=== PATIENT | female | born 1990 | race Caucasian/White ===

== ENCOUNTER → 2017-01-01 | Outpatient (CLI) | payer BC | END | disposition home or self-care (01) | LOC: YCFC.O 13:10 | PROVIDERS: ATTEND Nurse Practitioner Family | DX: R10.9 Unspecified abdominal pain (principal) ==

== ENCOUNTER 2020-06-22 12:50 | Emergency (ER) | payer BC ==
[2020-06-22] MEDS ORDERED: methylPREDNISolone SODIUM SUC 125 MG/2 ML VIAL IV ONE (12:54)
[2020-06-22] MEDS ORDERED: diphenhydrAMINE HCL 50 MG/ML VIAL IV ONE (12:55)
[2020-06-22] MEDS ORDERED: SODIUM CHLORIDE 0.9% 1000ML 1,000 ML ONE (13:00)
[2020-06-22] MEDS ORDERED: EPINEPHrine HCL AMP 1 MG/ML AMP ONE (13:02)
[2020-06-22] MEDS ORDERED: SODIUM CHLORIDE 0.9% 1000ML 1,000 ML IVS ONE (13:03)
[2020-06-22] MEDS ORDERED: EPINEPHrine HCL AMP 1 MG/ML AMP IM ONE ×2 (13:06→13:13)
[2020-06-22] MEDS ORDERED: ONDANSETRON INJ 4 MG/2 ML VIAL ONE (13:11)
[2020-06-22 13:22] VITALS: TEMP 98.8
--- NOTE | 2020-06-22 13:43 | ED.PDOC ---
History of Present Illness - General Chief Complaint: Allergic Reaction Stated Complaint: allergic reaction after lunch meal Time Seen by Provider: 06/22/20 12:54 Source: patient, RN notes reviewed, Vital Signs reviewed - History of Present Illness Initial Comments: patient ate shrimp at [employer] restaurant at 11 AM shortly after on way home got tongue throat swelling, couldn't swallow, broke out in hives. Never happened before. denies new medication, hx of almond allergy, but not anaphylaxis. no peanut exposure she is aware of. Allergies/Adverse Reactions: Allergies NO KNOWN ALLERGY Allergy (Verified 06/22/20 13:22) Home Medications: Ambulatory Orders Epinephrine [Epipen 2-Chago] 0.3 mg IJ ONCE PRN #2 each 06/22/20 Prednisone 20 mg PO BID #10 tab 06/22/20 Review of Systems - Review of Systems Constitutional: States: diaphoresis. Denies: chills, fever EENTM: States: throat swelling, mouth swelling. Denies: blurred vision Respiratory: States: cough, short of breath, stridor Cardiology: States: palpitations. Denies: chest pain Gastrointestinal/Abdominal: Denies: abdominal pain, diarrhea, nausea, vomiting Genitourinary: Denies: frequency, hematuria Musculoskeletal: Denies: back pain, joint swelling, muscle pain, neck pain Neurological: Denies: headache, numbness, paresthesia, tingling, tremors, weakness Endocrine: Denies: increased urine, unexplained weight gain, unexplained weight loss Hematologic/Lymphatic: Denies: blood clots, easy bleeding, easy bruising Past Medical History (General) - Patient Medical History Hx Seizures: No Hx Stroke: No Hx Dementia: No Hx Asthma: No Hx of COPD: No Hx Cardiac Disorders: No Hx Congestive Heart Failure: No Hx Pacemaker: No Hx Hypertension: No Hx Thyroid Disease: No Hx Diabetes: No Hx Gastroesophageal Reflux: No Hx Renal Disease: No Hx Cancer: No Hx of HIV: No Hx Hepatitis B: No Hx Hepatitis C: No Hx MRSA: No Surgical History: no surgical history - Activities of Daily Living Hospice Agency (if applicable):: None - Female History Patient : No Family Medical History - Family History Mother Family History: Unknown Physical Exam - Physical Exam General Appearance: Alert, Anxious Eye Exam: bilateral normal Ears, Nose, Throat: other - tongue swollen, stridor, hoarse voice. Neck: non-tender, full range of motion, supple Respiratory: chest non-tender, lungs clear, normal breath sounds, no respiratory distress, no accessory muscle use Cardiovascular/Chest: normal peripheral pulses, no edema, no gallop, no JVD, no murmur, tachycardia Peripheral Pulses: radial,right: 2+, radial,left: 2+ Gastrointestinal/Abdominal: normal bowel sounds, non tender, soft, no organomegaly, no pulsatile mass Rectal Exam: deferred Back Exam: normal inspection, no CVA tenderness, no vertebral tenderness Extremity: normal range of motion, non-tender, normal inspection, no pedal edema, no calf tenderness, normal capillary refill 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 500 ml NS IVF Swelling improved. Voice no longer hoarse. I recommend patient be admitted for observation as she could have another flair up when medication wears off. This could quickly be fatal if she is not at the hospital. She acknowledge understanding and refused admission. The data reviewed when caring for this patient included: nurse notes, prior records, etc. The history and assessments from nurses notes were reviewed and considered, and the patient's home medication list was also reviewed and considered. My assessment and the results of testing completed here in the ED were discussed with the patient/family. All questions were answered, and they express understanding of my assessment and the plan. Strict return precautions given. ZEE Ruiz DO #[id number] 06/22/20 15:03 06/22/20 15:05 Departure - Departure Clinical Impression: Anaphylaxis Qualifiers: Encounter type: initial encounter Qualified Code(s): T78.2XXA - Anaphylactic shock, unspecified, initial encounter Disposition: Left Against Medical Advice Departure Forms: ED Discharge - Pt. Copy, Patient Portal Self Enrollment Instructions: DI for Allergic Rhinitis, Anaphylaxis, Epinephrine Autoinjectors Diet: other - avoid shellfish Prescriptions: Epinephrine [Epipen 2-Chago] 0.3 mg IJ ONCE PRN #2 each PRN Reason: Allergies Prednisone 20 mg PO BID #10 tab Home Medications: Ambulatory Orders Epinephrine [Epipen 2-Chago] 0.3 mg IJ ONCE PRN #2 each 06/22/20 Prednisone 20 mg PO BID #10 tab 06/22/20 Critical Care Note - Critical Care Note Total Time (mins): 25
[2020-06-22 13:55] VITALS: BP 133/79; O2SAT 98
== END 2020-06-22 13:55 | disposition left against medical advice (07) ==
LOC: ER 12:50
DX: T78.2XXA Anaphylactic shock, unspecified, initial encounter (principal); Z53.29 Procedure and treatment not carried out because of patient's decision for other reasons; Z91.018 Allergy to other foods
CPT/HCPCS: J1200; J2405; J2930; J7030